=== PATIENT | female | born 1985 | race Caucasian/White ===

== ENCOUNTER → 2020-09-09 02:14 | Outpatient (CLI) | payer OTHER, SELFPAY ==
[2020-09-09 17:04] LABS: SARS-CoV-2 RNA PCR Negative
== END ==
PROVIDERS: PCP Family Medicine; Visit Provider Plastic Surgery
DX: Z01.812 Encounter for preprocedural laboratory examination (principal); Z20.822 Contact with and (suspected) exposure to COVID-19
CPT/HCPCS: C9803; U0003; U0005

== ENCOUNTER 2020-09-12 00:22 | Day surgery (SDC) | payer OTHER, SELFPAY ==
[2020-09-02 14:11] VITALS: BMI 29.9
[2020-09-12 06:13] VITALS: BP 103/61; PULSE 68; RESP 16; TEMP 36.6; O2SAT 98
--- NOTE | 2020-09-12 06:55 | WPDANESEPPF ---
Anes - Initial Pre Proc Eval Procedure: Operation Date: 09/12/20 07:30 Proposed Procedures p Excision of Subcutaneous Mass Base of Right Index Finger - Jono Lazar MD Date/Time: 09/12/20 06:55 Surgeon: Jono Lazar MD Pre Op Diagnosis: subcutaneous mass base of right index finger Patient Data Age: 35 Gender: F Height: 5 ft 5 in Weight: 82.65 kg Last Vital Signs Temp 36.6 C 09/12/20 06:13 Pulse 68 09/12/20 06:13 Resp 16 09/12/20 06:13 BP 103/61 09/12/20 06:13 Pulse Ox 98 09/12/20 06:13 Allergies Allergy/AdvReac Type Severity Reaction Status Date / Time No Known Allergies Allergy Unknown Unverified 09/12/20 06:40 Home Medications Medication Instructions Recorded Confirmed Type phentermine 37.5 mg PO DAILY 09/02/20 09/12/20 History Patient hx anesthesia problems: none Family hx anesthesia problems: none [facility] Social History Social History Smoking status: Never smoker Second hand tobacco smoke exposure: No Alcohol intake: former Substance use: never Living arrangements: with family Spiritual care concerns: No Anes - Eval Final PreProcedure Day of Procedure 09/12/20 06:55 Patient weight: obese Heart: regular rate and rhythm Lungs: clear to auscultation Airway: Mallampati scale class II Neurological: alert and oriented Last oral intake: >/= 8 hours ASA classification: II Emergent: no Anesthetic plan: proceed Anesthesia type and monitoring: general GIVS and standard monitoring Informed Consent: The patient's anesthetic plan and its attendant risks and benefits were discussed with the patient/family/POA. Questions were solicited and answers provided to the satisfaction of the patient/family/POA.
[2020-09-12] MEDS: LACTATED RINGERS 1,000 ML 30 ML IV CONT (06:56)
--- NOTE | 2020-09-12 07:11 | WPDHPUPDATE1 ---
History and Physical Update Update Date/Time: 09/12/20 07:11 History and Physical has been reviewed, including an updated exam of the patient. There are NO changes in the patient's condition. Risks, benefits, and alternatives have been discussed and questions answered. Patient agrees to proceed with procedure.
[2020-09-12] MEDS: KETOROLAC 30 MG/ML VIAL (*BKC) 15 MG IV PUSH (07:44)
[2020-09-12] MEDS: LIDO 1%/EPINEPHRINE 1:100,000 50 ML VIAL INFILTRATE (07:55)
--- NOTE | 2020-09-12 08:08 | P.OPB_ITS ---
Procedure Note - Brief Procedure Note - Brief Date of procedure: 09/12/20 Pre-op diagnosis: subcutaneous mass base of right index finger Post-op diagnosis: other (ganglion cyst) Procedure performed: Excision of ganglion cyst of the volar base of the right index finger. Anesthesia: MAC Surgeon: Jono Lazar MD Speaker Wirer: yury Tourniquet time (min): 15 Drains: No Packing: No Pathology: yes Complications: No immediate complications Condition: stable Disposition: same day
[2020-09-12 08:09] VITALS: BP 96/54; PULSE 81; RESP 12; O2SAT 100
--- NOTE | 2020-09-12 08:10 | PM.PROC ---
Procedure Note - Detailed Date of procedure: 09/12/20 Pre-op diagnosis: subcutaneous mass base of right index finger Post-op diagnosis: other (Ganglion cyst) Procedure performed: Excision of 1 cm ganglion cyst right index finger volar base Description of procedure: The site was marked on the patient's hand in the holding area. She was taken to the operating room and placed supine on the operating table. The hand was placed on the hand table and prepped and draped in usual fashion. She was given IV sedation. Time-out was held and confirmed. The site was locally infiltrated with 1% lidocaine with epinephrine. The tourniquet was inflated to 250 mmHg. A 2 cm diagonal incision was made and blunt dissection revealed the nerve protruding through to branches of the radial digital nerve. The cyst was attached to the joint capsule. The neurovascular structures were very carefully dissected free and the mass removed. The wound was closed with a running 5 0 nylon suture in a small bandage applied. She was discharged with instructions in wound care and follow-up. She has a prescription for tramadol 50 mg 8. Anesthesia: MAC Surgeon: Jono Lazar MD Rehabilitation Services Director: Tai Estimated blood loss (mL): 0 Tourniquet time (min): 15 Drains: No Packing: No Pathology: yes Complications: No immediate complications Condition: stable Disposition: same day
[2020-09-12 08:35] VITALS: BP 96/49; PULSE 77; RESP 12; O2SAT 100
[2020-09-12 09:00] VITALS: BP 109/60; PULSE 67; RESP 14
== END 2020-09-12 09:10 | disposition home or self-care (01) ==
PROVIDERS: PCP Family Medicine; Visit Provider Plastic Surgery
PROC: (CPT 26160; principal; 2020-09-12 07:30)
DX: M67.441 Ganglion, right hand (principal); E66.9 Obesity, unspecified; Z68.30 Body mass index [BMI] 30.0-30.9, adult
CPT/HCPCS: 26160; 88304; A9270; C9803; J0131; J1100; J1885; J2250; J2405; J2704; J3010; J7120; U0003; U0005

== ENCOUNTER 2023-05-30 08:04 | Emergency (ER) | payer OTHER, SELFPAY ==
[2023-05-30 08:16] VITALS: BP 124/77; PULSE 82; RESP 18; TEMP 36.5; O2SAT 100
--- NOTE | 2023-05-30 08:26 | ED.URI ---
HPI - URI/Sore Throat General Stated Complaint: Sore Throat/Ear Pain/Body Aches History of Present Illness HPI Narrative: Patient presents with nasal congestion headache and sore throat. Patient states her symptoms started about 24 hours ago patient is taking cough and cold medication and ibuprofen for her symptoms. No fever no shortness of breath no chest pain. Tolerating liquids well. 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 Related Data Home Medications Medication Instructions Recorded Confirmed levonorgestrel 21 mcg/24 hours (8 1 device intrauterine ONCE 05/30/23 05/30/23 yrs) 52 mg intrauterine device (Mirena) Allergies Allergy/AdvReac Type Severity Reaction Status Date / Time No Known Allergies Allergy Unknown Verified 05/30/23 08:27 Review of Systems Review of Systems: CONSTITUTIONAL: Denies chills, or sweats. Reports fever and generalized body aches EYES: Denies visual changes, redness, or discharge. ENT: Denies otalgia. Reports nasal congestion runny nose and sore throat CARDIOVASCULAR: Denies chest pain, palpitations, or edema. RESPIRATORY: Denies dyspnea. Reports occasional cough GASTROINTESTINAL: Denies abdominal pain, nausea, vomiting, or diarrhea. GENITOURINARY: Denies dysuria or hematuria. SKIN: Denies rash or itching. MUSCULOSKELETAL: Denies back pain, joint pain, or myalgia. Reports generalized body aches NEUROLOGIC: Denies headache, numbness, or weakness. PSYCHIATRIC: Denies anxiety or depression. PMFSH Social History Social History Smoking status: Never smoker Second hand tobacco smoke exposure: No Alcohol intake: former Substance use: never Living arrangements: with family Spiritual care concerns: No Comments At time of signature, agree with nursing past medical, surgical, social and family history. There is no relevant family history pertinent to the presenting complaint Exam Narrative: The patient is a well-developed, well-nourished in no acute distress. SKIN: Skin is warm and dry without erythema, swelling or exudate. There is good turgor. No tenting. HEAD: Atraumatic. Normocephalic. No temporal or scalp tenderness. EYES: Moist and bright. Sclera and conjunctivae normal. No discharge. PERRLA. Extraocular motions intact. Gross visual acuity intact. EARS: Pinna is normal shape and contour. Clear external auditory canals. TM pearly ramos with good cone of light, no erythema or suppuration. Bilateral cerumen noted no gross hearing deficit. NOSE: pink, moist mucosa with good air movement. Clear rhinorrhea without nasal flaring. Septum midline. Mouth: moist mucous membranes. THROAT; mild erythema noted to posterior oropharynx with moderate postnasal drainage. Without exudate or ulceration.. Uvula midline. Normal movement of soft palate. NECK: Supple and nontender with full range of motion without discomfort. No meningeal signs. LUNGS: Equal and bilateral breath sounds without wheezes, rales or rhonchi. CHEST: The chest wall is without retractions or use of accessory muscles. HEART: Has a regular rate and rhythm without murmur, gallops, click or rub. ABDOMEN: Soft, nontender with positive active bowel sounds. No rebound tenderness. EXTREMITIES: Without cyanosis, clubbing or edema. Equal 2+ distal pulses and 2 second capillary refill noted. NEUROLOGIC: alert, active, . The patient moves all extremities with normal muscle strength. Normal muscle tone is noted. Normal coordination is noted. NO focal neurological findings noted. Course Course Level of Care: Express Care Visit Vital Signs Vital signs: Vital Signs Temperature 36.5 C 05/30/23 08:16 Pulse Rate 82 05/30/23 08:16 Respiratory Rate 18 05/30/23 08:16 Blood Pressure 124/77 05/30/23 08:16 Pulse Oximetry 100 05/30/23 08:16 Oxygen Delivery Room Air 05/30/23 08:16 Temperature
== END 2023-05-30 08:38 | disposition home or self-care (01) ==
PROVIDERS: Emergency Provider Nurse Practitioner Family; PCP Family Medicine
DX: J11.1 Influenza due to unidentified influenza virus with other respiratory manifestations (principal); Z79.899 Other long term (current) drug therapy; Z20.822 Contact with and (suspected) exposure to COVID-19
CPT/HCPCS: 87081; 87426; 87804; 87880; 99213; G0463

== ENCOUNTER 2025-01-17 08:05 | Emergency (ER) | payer OTHER, SELFPAY ==
[2025-01-17 08:11] VITALS: BP 124/76; PULSE 87; RESP 18; TEMP 36.3; O2SAT 98
[2025-01-17 08:16] VITALS: RESP 18; O2SAT 99
[2025-01-17 08:17] VITALS: BP 120/91; PULSE 95; RESP 15; O2SAT 99
--- NOTE | 2025-01-17 08:20 | ED_ITS ---
HPI - General Adult General Chief complaint: Unspecified Stated complaint: blisters and pain to RFA Time Seen by Provider: 01/17/25 08:09 History of Present Illness HPI narrative: 39-year-old female presents to the emergency department for evaluation for pain and rash to right arm. Patient noticed pain starting on Wednesday and then on Wednesday and Wednesday she began noticing increased rash at that same site. Patient has no prior history of shingles. Patient does have history of herpes zoster as a child. Patient is not immunocompromised. Patient denies rash anywhere else other than the right arm. Related Data Home Medications ?Medication ?Instructions ?Recorded ?Confirmed ?Last Taken ?Type levonorgestrel (Mirena) 1 device intrauterine ONCE 0 05/30/23 12/30/23 Unknown History cholecalciferol (vitamin D3) 10 10 mcg PO DAILY 12/30/23 Unknown History mcg (400 unit) capsule phentermine 15 mg capsule 15 mg PO DAILY 12/30/2312/11 Unknown History Allergies Allergy/AdvReac Type Severity Reaction Status Date / Time No Known Allergies Allergy Unknown Verified 01/17/25 08:06 Review of Systems Review of Systems: All systems reviewed & are unremarkable except as noted in HPI and below PMFSH Past Medical History Medical History (Updated 01/17/25 @ 08:26 by Nando Ag MD) Miscarriage Surgical History Surgical History (Updated 12/30/23 @ 08:01 by Luda Herron MA) [place] teeth extracted H/O dilation and curettage Family History Family History (Updated 12/30/23 @ 08:03 by Luda Herron MA) Father Cancer Grandparent Cancer Social History Social History Smoking status: Never smoker Second hand tobacco smoke exposure: No Alcohol intake: former Substance use: never Living arrangements: with family Spiritual care concerns: No Exam Narrative: APPEARANCE: Well appearing, no pain, no distress, well-nourished. HEAD: normocephalic, atraumatic. EYES: PERRLA/EOMI, conjunctivae clear. NOSE: Normal no drainage EARS:TMS clear with good light reflex. THROAT: Pharynx clear, no exudate. NECK: Supple. No adenopathy, no masses. RESPIRATORY: Airway patent, respirations nonlabored. Clear to auscultation bilaterally, no rales, rhonchi, wheezing. CARDIOVASCULAR: Regular rate and rhythm without murmurs rubs or gallops. ABDOMINAL: Soft, nontender, nondistended, normal bowel sounds MUSCULOSKELETAL: Moves all extremities. Strength/ROM intact, No edema, No calf tenderness. NEURO: Alert. Cranial nerves II through XII intact. Good gait. Good coordination SKIN: Rash to right forearm in a C8 distribution Course Vital Signs Vital signs: Vital Signs Temperature 97.4 F L 01/17/25 08:11 Pulse Rate 87 01/17/25 08:11 Respiratory Rate 18 01/17/25 08:11 Blood Pressure 124/76 01/17/25 08:11 Pulse Oximetry 98 01/17/25 08:11 Temperature 97.4 F L 01/17/25 08:11 Pulse Rate 78 01/17/25 08:49 Respiratory Rate 18 01/17/25 08:49 Blood Pressure 120/91 H 01/17/25 08:17 Pulse Oximetry 100 01/17/25 08:49 Medical Decision Making [facility] Narrative Medical decision making narrative: 39-year-old female presents emergency department for evaluation for pain and rash to right forearm that is consistent with shingles. Patient was started on acyclovir in the emergency department. Patient is provided medication for pain control. Patient was also advised to avoid exposure to women and people for bowl to herpes zoster. All questions concerns were addressed patient was comfortable the plan for discharge and close follow-up Differential Diagnosis Differential Diagnosis: shingles, cellulitis, allergic dermatitis Vital Signs Vital Signs: Vital Signs Temperature 97.4 F L 01/17/25 08:11 Pulse Rate 87 01/17/25 08:11 Respiratory Rate 18 01/17/25 08:11 Blood Pressure 124/76 01/17/25 08:11 Pulse Oximetry 98 01/17/25 08:11 Temperature 97.4 F L 01/17/25 08:11 Pulse Rate 78 01/17/25 08:49 Respiratory Rate 18 01/17/25 08:49 Blood Pressure 120/91 H 01/17/25 08:17 Pulse Oximetry 100 10 08:49 Discharge Plan Discharge Clinical Impression: Shingles Patient Disposition: Home Condition: Stable Instructions: Antibiotic Form, Shingles (ED) Additional Instructions: You should stay home from work with shingles until your rash has completely crusted over, which typically takes about 7 to 10 days. This is to prevent spreading the varicella-zoster virus to others who are not immune to chickenpox. Continue the valacyclovir until completed. Ibuprofen for pain control. [place] as needed for additional pain control. Have close follow-up with your primary care physician. Patient Language: Romansh Prescriptions: New valacyclovir 1 gram tablet 1,000 mg PO Q8H 10 Days Qty: 30 0RF hydrocodone-acetaminophen 5-325 mg tablet 1 tablet PO Q12H PRN (Reason: pain) Qty: 14 0RF No Action Mirena 21 mcg/24 hours (8 yrs) 52 mg Intrauterine Device 1 device INTRAUTERINE ONCE Rx Instructions: as a single dose phentermine 15 mg capsule 15 mg PO DAILY Rx Instructions: must administer 2 hours after breakfast cholecalciferol (vitamin D3) 10 mcg (400 unit) capsule 10 mcg PO DAILY Follow-up/Referrals: Stew,Bhavani Sheikh MD [Non-Staff] Stand Alone Forms: Work/School Release IP
--- NOTE | 2025-01-17 08:32 | PC.NURSE ---
medication not in pyxis, spoke with Dawna in pharmacy and they will tube medication down
[2025-01-17] MEDS: IBUPROFEN 400 MG TABLET 800 MG PO (08:38)
[2025-01-17 08:49] VITALS: PULSE 78; RESP 18; O2SAT 100
== END 2025-01-17 08:46 | disposition home or self-care (01) ==
LOC: ANHED 08:30
PROVIDERS: Emergency Provider Emergency Medicine; PCP Nurse Practitioner
DX: B02.9 Zoster without complications (principal)
CPT/HCPCS: 99283; A9270